=== PATIENT | male | born 1995 | race Caucasian/White ===

== ENCOUNTER 2017-06-15 21:06 | Day surgery (SDC) | payer BC ==
[2017-06-15 21:26] VITALS: PULSE 99
--- NOTE | 2017-06-15 21:39 | EDPHY ---
H & P Stated Complaint: L testicle pain since 914 HPI/ROS: CHIEF COMPLAINT: Left testicular pain HISTORY OF PRESENT ILLNESS: This is a healthy 21-year-old male with 2 hours of left-testicular pain. The pain came on relatively abruptly and has been constant since then. He describes it as a dull sensation that radiates into his lower abdomen on the left. No dysuria. No flank pain. No fever. He has not had nausea or vomiting. He is not sexually active and has not been for over a year. REVIEW OF SYSTEMS: A ten point review of systems was performed and is negative with the exception of the items mentioned in the HPI. Past medical history: Negative Past surgical history: Negative Social history: He works with an [employer] agency. No tobacco use. Rare alcohol use. General Appearance: Alert. Vital signs reviewed. Respiratory: Lungs are clear to auscultation; no wheezes, rales, or rhonchi. Cardiovascular: Regular rate and rhythm; no murmur, rub, or gallop. Gastrointestinal: Abdomen is soft and nontender, no masses or organomegaly, bowel sounds normal. : Normal circumcised male. No penile discharge. Left epididymis is edematous and tender. Testicle itself is not enlarged or erythematous. Left testicle is slightly high-riding. No inguinal hernia. Skin: Warm and dry, no rashes on exposed skin, normal color. Back: Nontender to palpation over the thoracolumbar spine. No CVAT. Extremities: No lower extremity edema, no calf tenderness or swelling. Neurological: Alert and oriented. Moving all four extremities easily and equally. Psychiatric: Normal affect. - Personal History Current Tetanus/Diphtheria Vaccine: Yes - Medical/Surgical History Hx Asthma: No Hx Chronic Respiratory Disease: No Hx Diabetes: No Hx Cardiac Disease: No Hx Renal Disease: No Hx Cirrhosis: No Hx Alcoholism: No Hx HIV/AIDS: No Hx Splenectomy or Spleen Trauma: No Other PMH: PSHx: labral repair bilat hips, cyst removed from R wrist. PMHx: depression, anxiety - Social History Smoking Status: Never smoked Constitutional: Initial Vital Signs Temperature (C) 37 C 06/15/17 21:23 Heart Rate 99 06/15/17 21:23 Respiratory Rate 16 06/15/17 21:23 Blood Pressure 111/73 06/15/17 21:23 O2 Sat (%) 96 06/15/17 21:23 O2 Delivery Mode Room Air Allergies/Adverse Reactions: Sulfa (Sulfonamide Antibiotics) Allergy (Verified 06/15/17 21:21) Home Medications: Medication Instructions Recorded Adderall Xr 5 mg Capsule 06/15/17 Prozac 20 MG (*) 06/15/17 Wellbutrin Xl 06/15/17 Medical Decision Making - Diagnostics Imaging Results: Imaging Impressions Testicular Ultrasound 06/15/17 21:35 Impression: Findings indicate left testicular torsion. Findings and recommendations discussed with Anabel Tran M.D., at 2228 hours, on June 15, 2017. Final report concurs with initial preliminary interpretation. Testicular Ultrasound 06/15/17 22:58 Impression: Flow has not been restored into the left testicle. Findings and recommendations discussed with Anabel Tran M.D., at 1115 hours, on June 15, 2017. Final report concurs with initial preliminary interpretation. ED Course/Re-evaluation: My initial impression was that this was likely epididymitis/an infectious process. However, given the acute onset of his pain, testicular torsion was also a strong contender. Testicular ultrasound was ordered shortly after his arrival. Results were reported to me by Dr. Faustin at 2228. She sees no blood flow to the left testicle. 0:Call was placed to the urologist numerical control programmer, Dr. Lange. I attempted to manually detorse the left testicle and felt that I had some success. The patient had some pain relief and the testicle seemed to relax into the scrotum. 7: I spoke with Dr. Lange. He has requested a repeat ultrasound to assess blood flow to the left testicle. This study was performed and no blood flow was seen. Dr. Lange was again notified and he has alerted the operating room. Patient aware of need for surgery. Differential Diagnosis: Testicular pain including but not limited to epididymitis, orchitis, referred pain from kidney stone, inguinal hernia, and torsion of the testicle. - Data Points Laboratory Results: Laboratory Results 06/15/17 22:40 06/15/17 22:40 WBC 11.20 10^3/uL H 10^3/uL (3.80-9.50) RBC 4.65 10^6/uL 10^6/uL (4.40-6.38) Hgb 15.0 g/dL g/dL (13.7-17.5) Hct 41.4 % % (40.0-51.0) MCV 89.0 fL fL (81.5-99.8) MCH 32.3 pg pg (27.9-34.1) MCHC 36.2 g/dL g/dL (32.4-36.7) RDW 11.4 % L % (11.5-15.2) Plt Count 217 10^3/uL 10^3/uL (150-400) MPV 11.5 fL fL (8.7-11.7) Neut % (Auto) 80.3 % H % (39.3-74.2) Lymph % (Auto) 11.3 % L % (15.0-45.0) Hutchinson % (Auto) 5.4 % % (4.5-13.0) Eos % (Auto) 2.1 % % (0.6-7.6) Baso % (Auto) 0.5 % % (0.3-1.7) Nucleat RBC Rel Count 0.0 % % (0.0-0.2) Absolute Neuts (auto) 8.99 10^3/uL H 10^3/uL (1.70-6.50) Absolute Lymphs (auto) 1.27 10^3/uL 10^3/uL (1.00-3.00) Absolute Monos (auto) 0.60 10^3/uL 10^3/uL (0.30-0.80) Absolute Eos (auto) 0.24 10^3/uL 10^3/uL (0.03-0.40) Absolute Basos (auto) 0.06 10^3/uL 10^3/uL (0.02-0.10) Absolute Nucleated RBC 0.00 10^3/uL 10^3/uL (0-0.01) Immature Gran % 0.4 % % (0.0-1.1) Immature Gran # 0.04 10^3/uL 10^3/uL (0.00-0.10) Medications Given: Discontinued Medications Fentanyl (Sublimaze) 50 mcg IVP EDNOW ONE Stop: 06/15/17 23:24 Last Admin: 06/15/17 23:44 Dose: 50 mcg Ibuprofen (Motrin) 600 mg PO EDNOW ONE Stop: 06/15/17 21:42 Last Admin: 06/15/17 21:43 Dose: 600 mg Ondansetron HCl (Zofran) 4 mg IVP EDNOW ONE Stop: 06/15/17 23:24 Last Admin: 06/15/17 23:43 Dose: 4 mg Oxycodone/Acetaminophen (Percocet 5/325) 1 tab PO EDNOW ONE Stop: 06/15/17 22:06 Last Admin: 06/15/17 22:05 Dose: 1 tab Departure - Departure Disposition: To OP Cath/Surgery Clinical Impression: Testicular torsion Condition: Good
[2017-06-15] MEDS ORDERED: IBUPROFEN 600 MG TAB PO ONE (21:41)
[2017-06-15] MEDS ORDERED: OXYCODONE/APAP 5/325 TAB ONE (22:03)
[2017-06-15] MEDS ORDERED: OXYCODONE/APAP 5/325 TAB PO ONE (22:05)
[2017-06-15] MEDS ORDERED: fentaNYL 100 MCG/2 ML INJ IVP ONE (23:23)
[2017-06-15] MEDS ORDERED: ONDANSETRON 4 MG/2 ML VIAL IVP ONE (23:23)
[2017-06-15 23:29] LABS: % IMMATURE GRANULYOCYTES 0.4 % (0.0-1.1); ABSOLUTE IMMATURE GRANULOCYTES 0.04 10^3/uL (0.00-0.10); ADD DIFF? NO; ADD MORPH? NO; ADD SCAN? NO; ATYPICAL LYMPHOCYTE FLAG 0 (0-99); FRAGMENT RBC FLAG 0 (0-99); HEMATOCRIT 41.4 % (40.0-51.0); LEFT SHIFT FLG 0 (0-99); LIPEMIA HEMOLYSIS FLAG 90 (0-99); MEAN CELL HEMOGLOBIN 32.3 pg (27.9-34.1); MEAN CELL HEMOGLOBIN CONCENTR. 36.2 g/dL (32.4-36.7); MEAN PLATELET VOLUME 11.5 fL (8.7-11.7); PLATELET CLUMPS FLAG 0 (0-99); PLATELET COUNT 217 10^3/uL (150-400); RED BLOOD CELL COUNT 4.65 10^6/uL (4.40-6.38); RED CELL DISTRIBUTION WIDTH 11.4 % (11.5-15.2)
[2017-06-15] MEDS ORDERED: BUPIVACAINE 0.5% 30 ML SDV ONE (23:47)
[2017-06-16] MEDS ORDERED: fentaNYL 100 MCG/2 ML INJ ONE (00:01)
[2017-06-16] MEDS ORDERED: PROPOFOL/EMULSION 500 MG/50 ML BOTTLE IV ONE (00:01)
[2017-06-16] MEDS ORDERED: REMIFENTANIL HCL 1 MG VIAL ONE (00:10)
[2017-06-16] MEDS ORDERED: PROPOFOL 200 MG/20 ML VIAL ONE (00:11)
--- NOTE | 2017-06-16 00:21 | PDANEPAE ---
ANE History of Present Illness 21 yo for orchipexy ANE Past Medical History - Pulmonary History Hx Oxygen in Use at Home: No - Neurologic History Neurologic History Comment: depression/anxiety - Endocrine History Hx Diabetes: No ANE Review of Systems Review of Systems: - Exercise capacity METS (RN): 4 METS ANE Patient History - Allergies Allergies/Adverse Reactions: Sulfa (Sulfonamide Antibiotics) Allergy (Verified 06/15/17 21:21) - Home Medications Home Medications: Adderall Xr 5 mg Capsule 06/15/17 [Last Taken Unknown] Prozac 20 MG (*) 06/15/17 [Last Taken Unknown] Wellbutrin Xl 06/15/17 [Last Taken Unknown] - NPO status NPO Since - Liquids (Date): 06/15/17 NPO Since - Liquids (Time): 19:00 NPO Since - Solids (Date): 06/15/17 NPO Since - Solids (Time): 19:00 - Smoking Hx Smoking Status: Never smoked ANE Labs/Vital Signs - Labs Result Diagrams: 06/15/17 22:40 - Vital Signs Blood Pressure: 111/73 Heart Rate: 99 Respiratory Rate: 16 O2 Sat (%): 96 Height: 6 ft 2 in Weight: 72.575 kg ANE Physical Exam - Airway Neck exam: FROM Mallampati Score: Class 1 - Pulmonary Pulmonary: no respiratory distress - Cardiovascular Cardiovascular: regular rate and rhythym - ASA Status ASA Status: II, E ANE Anesthesia Plan Anesthesia Plan: general endotracheal anesthesia Urgent/Emergent Case: Joyce goff completed preop but documented later for safe timely pt care
[2017-06-16] MEDS ORDERED: NALOXONE HCL 0.4 MG/ML INJ IVP PRN (00:59)
[2017-06-16] MEDS ORDERED: fentaNYL 100 MCG/2 ML INJ IVP PRN (00:59)
[2017-06-16] MEDS ORDERED: ONDANSETRON 4 MG/2 ML VIAL IVP PRN (00:59)
[2017-06-16] MEDS ORDERED: MEPERIDINE 25 MG/ML SYR IVP PRN (00:59)
--- NOTE | 2017-06-16 01:37 | POSTOPPROG ---
Post Op Note Date of Operation: 06/16/17 Surgeon: Zackery Lange Anesthesia: GET(General Endotracheal) Pre-op Diagnosis: left testicle torsion Post-op Diagnosis: same Indication: as above Procedure: BILAT SCROTAL EXPLORAITON AND BILAT ORCHIDOPEXY Inf/Abcess present in the surg proc area at time of surgery?: No Depth: Deep Incisional (Fascial) EBL: Minimal
[2017-06-16] MEDS ORDERED: OXYCODONE/APAP 5/325MG PREPACK#4 BTL TAKEHOME ONE (01:51)
--- NOTE | 2017-06-16 01:55 | POSTANESTH ---
Post Anesthetic Evaluation Cardiovascular Status: Normal, Stable Respiratory Status: Normal, Stable Level of Consciousness/Mental Status: Can Participate in Eval Pain Control: Adequate, Prn Tx Ordered Nausea/Vomiting Control: Adequate, Prn Tx Ordered Complications Possibly Related to Anesthesia: None Noted
[2017-06-16 02:12] VITALS: RESP 16; TEMP 97.7
[2017-06-16 02:59] VITALS: BP 122/74; O2SAT 99
--- NOTE | 2017-06-16 06:54 | GOP ---
[f rep st] OPERATIVE REPORT DATE OF OPERATION: 06/15/2017 SURGEON: Zackery Lange MD PREOPERATIVE DIAGNOSIS: Left testicular torsion. POSTOPERATIVE DIAGNOSIS: Left testicular torsion. PROCEDURE PERFORMED: Bilateral scrotal exploration and bilateral orchidopexy for left torsed testicl e. The torsion occurred at the level of the testicle. The cord proximal to this was totally normal. FINDINGS: ESTIMATED BLOOD LOSS: 2 cc. INDICATIONS: The patient has severe testicular pain. The scrotal ultrasound noted no flow, despite de-torsion by the ER physician, with a brief resolution of pain. A repeat ultrasound showed again no flow. He does state that this pain has been ongoing for 12 years on and off. This most recent epis ode had been going on for approximately 7 hours. He presented to the emergency room at 7:00 p.m. and I had him in the operating room at midnight, once I was notified that there was no flow, despite imp rovement of his pain on the second scrotal ultrasound. After a long discussion of the risks, benefit s, and alternatives, he has consented for the above procedure and brought to the operating room for t his operative procedure. DESCRIPTION OF PROCEDURE: The patient was identified by name, medical record number, wrist band, and brought to the operating room, placed on table, and prepped and draped in standard surgical fashion. He was prepped and draped, and a left-sided scrotal incision was made, carried down through Camper and Criselda fascia. The testicle was birthed, and it was dark blue and ischemic. I could not see the site of torsion initially, but mobilizing the testicle, a sac unwrapped from around the testicle, an d the blood supply was restored. Once the blood supply was restored, I turned my attention to the ri ght side. We made an incision in the right scrotum. I carried this down through dartos to the tunic a, and birthed the testicle out of the tunica vaginalis, and I performed an orchidopexy with a 4-0 Pr olene, suturing the left, then right tunica to the scrotum, and tied this down. We closed the right hemiscrotum with 3-0 Vicryl and a 2-0 chromic. We then turned our attention to the left testicle, wh en it was pinking up nicely with only a very small area of ischemia no remaining, which I am sure preeti l resolve, and the epididymis looked good. The testicle looked good. An orchidopexy was performed w ith a 4-0 Prolene in the tunica, sewn to the left, then the right side of the testicle. We closed th e left hemiscrotum after irrigating copiously. We performed it with a 3-0 Vicryl and a 2-0 chromic. Marcaine plain was infused. Spermatic cord block was performed. The patient was awakened from anes thesia and brought to the recovery room in stable condition. COMPLICATIONS: None. URINE OUTPUT: Unrecorded. COMPLICATIONS: None. /[id number]/MODL
--- NOTE | 2017-06-16 07:09 | GCON ---
[f rep st] CONSULTATION PREOPERATIVE DIAGNOSIS: Left testicular pain for the last 12 years, on and off, worsening since abou t 7:00 p.m. Per the patient, this came on abruptly and it worsened, and he was brought to the ER for evaluation. We performed a scrotal ultrasound which showed no flow. Dr. Tran reduced the testicl e torsion, and he felt better. I asked for a repeat ultrasound to ensure there was gnosticist of fl ow, and there was not. I came in and had the patient in the operating room within 30 minutes of the second ultrasound noting no flow, and he was brought to the operating room for evaluation of testicul ar torsion. REVIEW OF SYSTEMS: Ten-point review of systems was performed and is negative, except for the abdomin al pain and scrotal pain. PAST MEDICAL HISTORY: Negative. PAST SURGICAL HISTORY: Negative. SOCIAL HISTORY: He works in an [employer] agency. No tobacco use. Rare alcohol use. PHYSICAL EXAMINATION: GENERAL APPEARANCE: Alert. Arrteztj-yu-[id number] distress. RESPIRATORY: No re tractions, no pursed lip breathing. No cyanosis. CARDIOVASCULAR: No retractions, no cyanosis. GASTROINTESTINAL: Abdomen is soft, nontender, nondistended, but he points to the left lower quadrant to the site of pain. GENITOURINARY: Normal circumcised male. No penile drainage. The left epidid ymis is painful and tender. The testicle is somewhat high riding. No erythema. Right testicle is n ormal. SKIN: No rashes or lesions. BACK: Normal mobility. EXTREMITIES: Moving all 4 extremities normally. NEUROLOGIC: Cranial nerves 2 through 12 grossly intact. PSYCHIATRIC: Normal mood and a ffect. SMOKING STATUS: Never smoked. VITAL SIGNS: Afebrile, normal vital signs. MEDICATIONS: Adderall and Prozac. LABORATORY DATA: His white count is 11.2. Otherwise, normal. ASSESSMENT AND PLAN: To operating room for emergent evaluation of testicle torsion. He agrees. I d iscussed this with the mother, reviewed the ultrasound, and no blood flow was noted, and he was broug ht to the operating room for management of this. /[id number]/MODL
== END 2017-06-16 02:57 | disposition home or self-care (01) ==
LOC: FSGY 23:50
PROVIDERS: ATTEND Urology
PROC: 0VSC0ZZ Reposition Bilateral Testes, Open Approach (ICD-10-PCS; principal; 2017-06-15)
DX: N44.00 Torsion of testis, unspecified (principal); N50.812 Left testicular pain; F41.8 Other specified anxiety disorders
CPT/HCPCS: J2405; J2704; J3010

== ENCOUNTER 2017-12-27 10:26 | Emergency (ER) | payer BC ==
[2017-12-27 10:31] VITALS: BP 133/82
--- NOTE | 2017-12-27 10:48 | EDPHY ---
General Time Seen by Provider: 12/27/17 10:37 Narrative: CHIEF COMPLAINT: Dog bite HISTORY OF PRESENT ILLNESS: Patient complains of dog bite to the right ring finger. This is a known, vaccinated dog. It is his friend's dog that he was walking. A bit him on the right ring finger over the distal phalanx and the distal interphalangeal joint. This happened just prior to arrival. Minimally painful. Minimal bleeding. He did immediately washed his hands. Contacted his mother who is a retired emergency medicine physician recommend come to the emergency department. He has no complaints of pain. No difficulty bending or straightening fingers. No other associated complaints or modifying factors. Right-hand dominant TIME OF INJURY: Just prior to arrival TETANUS STATUS: Less than 5 years ago MEDICAL/SURGICAL/SOCIAL HISTORY: Attention deficit hyperactivity disorder, anxiety and depression. Lives here independently. 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 Brisk cap refill of all fingers of the right hand. Neurological: A&O, sensory symmetric, strength symmetric Skin: Warm and dry, no rash. Puncture wound to the right hand ring finger over the D IP and distal phalanx on the radial side. There is a superficial abrasion/excoriation on the ulnar side of the right ring finger distally. No foreign body. No bleeding. Extremities: Minimal tenderness in the area of dog bite on right ring finger. Full flexion extension of all fingers. DIFFERENTIAL DIAGNOSES: Including but not limited to dog bite MDM: 10:45 a.m. Acute superficial dog bite to the right ring finger. There is no extensive laceration. There are no lacerations that will require delayed closure. His tetanus is up-to-date. The wounds will be irrigated and scrubbed. I have administered a digital block. I have ordered Augmentin prophylactic coverage. 10:55 a.m. Wounds are currently being irrigated and scrubbed. I discussed discharge home with Augmentin and daily wound care. I discussed ED precautions for worsening pain, redness, warmth, fever, purulence, streaking lymphangitis, or difficulty bending or straightening the fingers. I provided the on-call outpatient Medicine to establish as a primary care physician. He is comfortable with this plan and discharged home stable condition. SUPERVISION: This patient was independently evaluated without direct involvement of or examination by the attending physician. ED Precautions: Worsening pain. Erythema, edema, cyanosis, pallor, paresthesia or anesthesia. - History Smoking Status: Never smoked - Objective Vital Signs: Initial Vital Signs Temperature (C) 98.2 F 12/27/17 10:30 Heart Rate 104 H 12/27/17 10:30 Respiratory Rate 16 12/27/17 10:30 Blood Pressure 133/82 H 12/27/17 10:30 O2 Sat (%) 95 12/27/17 10:30 O2 Delivery Mode Room Air Allergies/Adverse Reactions: Sulfa (Sulfonamide Antibiotics) Allergy (Verified 12/27/17 10:30) Home Medications: Medication Instructions Recorded Adderall Xr 5 mg Capsule 06/15/17 Prozac 20 MG (*) 06/15/17 Wellbutrin Xl 06/15/17 Amoxicillin/Clavulanate Pot 875 mg PO BID #14 tab 12/27/17 [Augmentin 875 MG TAB (*)] Departure - Departure Disposition: Home, Routine, Self-Care Clinical Impression: Dog bite Qualifiers: Encounter type: initial encounter Qualified Code(s): W54.0XXA - Bitten by dog, initial encounter Condition: Good Instructions: Animal Bite (ED) Additional Instructions: 1. Daily wound care as discussed 2. Augmentin as prescribed to completion 3. Return here for any signs of redness, warmth, streaking of the wrist or arm, fever, purulence or difficulty bending or straightening the fingers Referrals: Francisco Cuellar MD [Medical Doctor] - As per Instructions Prescriptions: Amoxicillin/Clavulanate Pot [Augmentin 875 MG TAB (*)] 875 mg PO BID #14 tab
== END 2017-12-27 11:11 | disposition home or self-care (01) ==
DX: S61.254A Open bite of right ring finger without damage to nail, initial encounter (principal); W54.0XXA Bitten by dog, initial encounter; Y99.8 Other external cause status; Y93.01 Activity, walking, marching and hiking